=== PATIENT | male | born 2000 | race Caucasian/White ===

== ENCOUNTER 2021-03-07 10:55 | Emergency (ER) | payer OTHER, SELFPAY ==
[2021-03-07 11:12] VITALS: BP 136/86; PULSE 78; RESP 20; TEMP 36.7; O2SAT 99
[2021-03-07 11:41] LABS: Alanine Aminotransferase 19 U/L (4-50); Albumin Level 4.6 g/dL (3.5-5.1); Alkaline Phosphatase 76 U/L (38-126); Anion Gap 7 mmol/L (8-16); Aspartate Amino Transferase 31 U/L (17-59); Bilirubin,Total 1.3 mg/dL (0.2-1.3); Blood Urea Nitrogen 15 mg/dL (9-20); Calcium 9.6 mg/dL (8.4-10.2); Carbon Dioxide 30 mmol/L (22-30); Chloride 105 mmol/L (98-107); Estimated CRCL calculation 109 ml/min; Estimated Glomerular Filt Rate > 60; Glucose 94 mg/dL (75-110); Lipase 53 U/L (23-300); Potassium 4.1 mmol/L (3.4-5.0); Sodium 142 mmol/L (137-145)
[2021-03-07 11:52] LABS: Add Urine Microscopic? YES; Appearance Urine Clear (Clear); Bacteria Urine Trace /hpf; Bilirubin Urine Negative (Negative); Blood Urine Negative (Negative); Color Urine Yellow (Yellow); Glucose Urine UA Negative (Negative); Ketones Urine Negative (Negative); Leukocyte Esterase Ur Negative LEU/UL (Negative); Mucus Urine Few /lpf; Nitrate Urine Negative (Negative); Protein Urine 3+ mg/dL (Negative); RBC Urine 0-2 /hpf (0-2); Specific Grav Ur 1.029 (1.001-1.035); Urobilinogen Urine Negative mg/dL (<2.0); WBC Urine 0-3 /hpf
[2021-03-07 12:39] LABS: Basophils Percent Auto 0.5 % (0.2-1.2); Eosinophils Absolute Auto 0.1 K/mm3 (0-0.3); Eosinophils Percent Auto 0.9 % (0-4.4); Hematocrit 46.1 % (42.0-52.0); Hemoglobin 15.9 g/dL (14.0-18.0); Immature Granulocyte Absolute 0.01 K/mm3 (0.00-0.031); Immature Granulocyte Percent A 0.2 % (0-0.5); Lymphocytes Absolute Auto 1.24 K/mm3 (0.9-3.2); Lymphocytes Percent Auto 19.1 % (18.3-44.2); Mean Corpuscular HGB Conc 34.5 g/dl (32-36); Mean Corpuscular Hemoglobin 30.4 pg (26-34); Mean Corpuscular Volume 88.1 fl (80-100); Monocytes Absolute Auto 0.4 K/mm3 (0.1-0.6); Monocytes Percent Auto 6.3 % (2.6-8.5); Neutrophils Absolute Auto 4.8 K/mm3 (1.3-6.7); Platelet Count Result 242 k/mm3 (150-375); Red Blood Count 5.23 M/mm3 (4.6-6.20); White Blood Count 6.5 K/mm3 (4.5-10.0)
--- NOTE | 2021-03-07 13:36 | PC.NURSE ---
pt reports that pain is better and does not wish to stay any longer. Informed of risk of leaving and encouraged to return if worsening of pain.
== END 2021-03-07 13:36 | disposition left against medical advice (07) ==
PROVIDERS: Emergency Provider Emergency Medicine
DX: R10.84 Generalized abdominal pain (principal)
CPT/HCPCS: 36415; 80053; 81001; 83690; 85025; 99199

== ENCOUNTER 2022-10-24 07:27 | Outpatient (CLI) | payer OTHER, SELFPAY ==
--- NOTE | ~2022-10-24 | MR_ITS ---
EXAMINATION: MR shoulder LT wo con DATE: 10/24/2022 08:09 INDICATION: left rotator cuff strain, posterior left shoulder pain . TECHNIQUE: Magnetic resonance imaging (MRI) of the left shoulder was performed without intravenous co ntrast. Sequences included axial PD-weighted FS FSE, coronal oblique PD-weighted FS FSE and T2-weight ed FS FSE, and sagittal oblique T2-weighted FS FSE and T1-weighted FSE. COMPARISON: None. FINDINGS: Coracoacromial arch: No significant downsloping of the type I acromion. Normal subacromial and subcoracoid spaces. Rotator cuff: Intact. Biceps tendon and glenoid labrum: Long head of biceps tendon and glenoid labrum are intact. Fluid: No significant fluid collections. Bones/cartilage: Normal glenohumeral cartilage. No suspicious focal or diffuse marrow signal. IMPRESSION: 1. Normal left shoulder MR findings. Reviewed, dictated and finalized at location K. [place] DEPARTMENT MANAGER
== END 2022-10-24 07:28 ==
DX: S46.012A Strain of muscle(s) and tendon(s) of the rotator cuff of left shoulder, initial encounter (principal); X58.XXXA Exposure to other specified factors, initial encounter
CPT/HCPCS: 73221

== ENCOUNTER 2025-01-16 16:16 | Emergency (ER) | payer BC, SELFPAY ==
--- NOTE | ~2025-01-16 | CT_ITS ---
CT abdomen pelvis w con Ordering provider: Kate Rocha APRN History: 24 years Male with . abdominal pain . Comparison: October 04, 2019 Technique: CT abdomen and pelvis with IV and without oral contrast. Automated exposure control and it erative reconstruction technique were employed. The dose-length product was 245.00 mGy-cm. 100 mL Omn ipaque 350 was given IV. Findings: VISUALIZED LOWER CHEST: Normal. UPPER ABDOMINAL ORGANS: Liver: Normal. Gallbladder: Distended with no stones. Spleen: Normal. Stomach/duodenum: Normal. Pancreas: Normal. Adrenals: Normal. Kidneys: Tiny cyst in the left kidney lower pole. PELVIC ORGANS: The bladder is normal. BOWEL AND MESENTERY: Colon: No evidence of diverticulitis. Fecal material is loaded in the colon.No definite appendicitis seen. Small Bowel: Normal. No obstruction. Peritoneum/mesentery: No free air or free fluid. No mesenteric lymphadenopathy. RETROPERITONEUM: Normal aorta. No retroperitoneal lymphadenopathy. MUSCULOSKELETAL: Superficial soft tissues: The superficial soft tissues are normal. Bones: Normal spine. IMPRESSION: 1. No evidence of appendicitis, diverticulitis or intestinal obstruction. No renal stones. 2. Constipation. Reviewed, dictated and finalized at location A. IMPRESSION: 1. No evidence of appendicitis, diverticulitis or intestinal obstruction. No r enal stones. 2. Constipation.
[2025-01-16 16:19] VITALS: BP 147/78; PULSE 124; RESP 20; TEMP 38.3; O2SAT 100
--- NOTE | 2025-01-16 16:22 | ECG_ITS ---
Test Date: 2025-01-16 16:43:37 Measurements Intervals [place] Rate: 101 P: 52 LA: 156 QRS: 95 QRSD: 94 T: 66 QT: 319 QTc: 413 Interpretive Statements SINUS TACHYCARDIA BORDERLINE RIGHT AXIS DEVIATION [QRS AXIS > 90] SEPTAL MYOCARDIAL INFARCTION , PROBABLY OLD [40+ ms Q WAVE IN V1/V2] No previous ECG available for comparison Electronically Signed On 01-16-2025 16:51:21 CDT by Roger Sebastian M.D.
--- NOTE | 2025-01-16 16:23 | ED_ITS ---
HPI - Abdominal Pain General Chief Complaint: Abdominal Pain <Kate Rocha APRN - Last Filed: 01/16/25 16:27> Stated Complaint: Abdominal pain, tingling in extremities <Kate Rocha APRN - Last Filed: 01/16/25 16:27> Time Seen by Provider: 01/16/25 16:20 <Kate Rocha APRN - Last Filed: 01/16/25 16:27> Focused HPI: Patient is a 24-year-old male who presents to the ER with complaints abdominal pain that started yesterday. He reports yesterday he had a sore throat and he endorses pain in his mid-abdomen. Today pt reports I feel my throat is closing off and endorses nausea, vomiting, inability to she an oral intake. Patient denies any chest pain, back pain, difficulty swallowing his secretions, neck stiffness. He denies any marijuana use. Patient reports he has no other medical history relevant to this ER visit. GENERAL: Ill-appearing, well-nourished, and in mild distress d/t pain. HEAD: Normocephalic, atraumatic. CHEST: Clear to auscultation. ?No respiratory distress. HEART: Tachycardia.? NEURO: ?Alert and oriented x3. Patient screened in triage and initial orders placed.? ?Additional care and disposition to be based upon?diagnostic testing and treatment. <Kate Rocha APRN - Last Filed: 01/16/25 16:27> History of Present Illness HPI narrative: I agree with the above HPI <Christopher Schmid MD - Last Filed: 01/16/25 22:20> Related Data Allergies/Adverse Reactions: Allergies Allergy/AdvReac Type Severity Reaction Status Date / Time No Known Allergies Allergy Mild Verified 01/16/25 16:17 <Kate Rocha APRN - Last Filed: 01/16/25 16:27> Review of Systems 2 Review of Systems: All systems reviewed & are unremarkable except as noted in HPI and below <Christopher Schmid MD - Last Filed: 01/16/25 22:20> PMFSH Past Medical History Medical History: Medical History (Updated 01/16/25 @ 17:59 by Christopher Schmid MD) Healthy adult <Kate Rocha APRN - Last Filed: 01/16/25 16:27> Surgical History Surgical History: Surgical History (Updated 10/04/19 @ 20:30 by Lorraine Sorto) History of tonsillectomy <Kate Rocha APRN - Last Filed: 01/16/25 16:27> Social History Social History: Social History (Updated 10/04/19 @ 20:30 by Lorraine Sorto) Smoking status: Unknown if ever smoked Gender identity (if verbalized by the patient): Male <Kate Rocha APRN - Last Filed: 01/16/25 16:27> Exam 2 Narrative: APPEARANCE: Ill-appearing HEAD: normocephalic, atraumatic. EYES: PERRLA/EOMI, conjunctivae clear. NOSE: Normal no drainage EARS:TMS clear with good light reflex. THROAT: Pharynx clear, no exudate. NECK: Supple. No adenopathy, no masses. RESPIRATORY: Airway patent, respirations nonlabored. Clear to auscultation bilaterally, no rales, rhonchi, wheezing. CARDIOVASCULAR: Regular rate and rhythm without murmurs rubs or gallops. ABDOMINAL: Soft, nontender, nondistended, normal bowel sounds MUSCULOSKELETAL: Moves all extremities. Strength/ROM intact, No edema, No calf tenderness. NEURO: Alert. Cranial nerves II through XII intact. Good gait. Good coordination SKIN: Warm, dry. Normal Color <Christopher Schmid MD - Last Filed: 01/16/25 22:20> Course Vital Signs Vital signs: Vital Signs Temperature 100.9 F H 01/16/25 16:19 Pulse Rate 124 H 01/16/25 16:19 Respiratory Rate 20 01/16/25 16:19 Blood Pressure 147/78 H 01/16/25 16:19 Pulse Oximetry 100 01/16/25 16:19 Oxygen Delivery Room Air 01/16/25 16:19 Temperature 97.9 F 01/16/25 18:04 Pulse Rate 103 H 01/16/25 18:04 Respiratory Rate 18 01/16/25 18:04 Blood Pressure 135/75 01/16/25 18:04 Pulse Oximetry 100 01/16/25 18:04 Oxygen Delivery Room Air 01/16/25 16:35 <Kate Rocha APRN - Last Filed: 01/16/25 16:27> Vital Signs Temperature 100.9 F H 01/16/25 16:19 Pulse Rate 124 H 01/16/25 16:19 Respiratory Rate 20 01/16/25 16:19 Blood Pressure 147/78 H 01/16/25 16:19 Pulse Oximetry 100 01/16/25 16:19 Oxygen Delivery Room Air 01/16/25 16:19 Temperature 97.9 F 01/16/25 18:04 Pulse Rate 103 H 01/16/25 18:04 Respiratory Rate 18 01/16/25 18:04 Blood Pressure 135/75 01/16/25 18:04 Pulse Oximetry 100 01/16/25 18:04 Oxygen Delivery Room Air 01/16/25 16:35 <Christopher Schmid MD - Last Filed: 01/16/25 22:20> MDM - Abdominal Pain MDM Narrative Medical decision making narrative: 24-year-old male presents emergency department for evaluation for sore throat body aches fatigue and abdominal pain. Patient is mildly febrile and does have a leukocytosis of 18.8, hemoglobin is 15.4, patient's platelets are normal. Patient has an INR of 1.1, no significant abnormalities on his CMP patient was positive for strep, CT abdomen pelvis shows no acute intra-abdominal pathology. Patient was treated with a dose of dexamethasone, p.o. Augmentin, 1 g of Tylenol and a L of IV fluids. Did feel improved in the emergency department. Patient being discharged home with Augmentin and instructions for Tylenol ibuprofen and soft diet. Patient was comfortable the plan for discharge <Christopher Schmid MD - Last Filed: 01/16/25 22:20> Differential Diagnosis Differential diagnosis: Likely abdominal pain, acute appendicitis, constipation, diverticulitis, pancreatitis and small bowel obstruction <Christopher Schmid MD - Last Filed: 01/16/25 22:20> Lab Data Attestation: I reviewed the patient's lab results. <Christopher Schmid MD - Last Filed: 01/16/25 22:20> Result diagrams: 01/16/25 16:33 01/16/25 16:33 <Kate Rocha APRN - Last Filed: 01/16/25 16:27> Labs: Lab Results 01/16/25 01/16/25 Range/Units 16:33 16:34 WBC 18.8 H (4.5-10.0) K/mm3 RBC 5.01 (4.6-6.20) M/mm3 Hgb 15.4 (14.0-18.0) g/dL Hct 43.3 (42.0-52.0) % MCV 86.4 (80-100) fl MCH 30.7 (26-34) pg MCHC 35.6 (32-36) g/dl RDW 12.3 (11.5-14.5) % Plt Count 209 (150-375) k/mm3 MPV 9.6 (7.4-10.4) fl Immature Gran % (Auto) 0.4 (0-0.5) % Neut % (Auto) 91.5 H (45.5-73.1) % Lymph % (Auto) 2.7 L (18.3-44.2) % [place] % (Auto) 5.1 (2.6-8.5) % Eos % (Auto) 0.1 (0-4.4) % Baso % (Auto) 0.2 (0.2-1.2) % Lymph # (Auto) 0.51 L (0.9-3.2) K/mm3 [place] # (Auto) 1.0 H (0.1-0.6) K/mm3 Eos # (Auto) 0.0 (0-0.3) K/mm3 Baso # (Auto) 0.0 (0.0-0.1) K/mm3 Abs Immat Gran (auto) 0.08 H (0.00-0.031) K/mm3 Absolute Neuts (auto) 17.2 H (1.3-6.7) K/mm3 Absolute Nucleated RBC 0.000 (0.0-0.012) K/mm3 Nucleated RBC % 0.0 (0.0-0.2) % PT 14.9 H (11.1-14.7) Seconds INR 1.1 APTT 28.8 (22.3-36.8) Seconds Sodium 139 (137-145) mmol/L Potassium 3.6 (3.4-5.0) mmol/L Chloride 104 (98-107) mmol/L Carbon Dioxide 19 L (22-30) mmol/L Anion Gap 16 H (4-12) mmol/L BUN 12 (9-20) mg/dL Creatinine 0.82 (0.7-1.3) mg/dL Estim Creat Clear Calc 104 ml/min Estimated GFR > 60 (59 - ) Glucose 103 (65-110) mg/dL Lactic Acid 1.7 (0.7-2.0) mmol/L Calcium 9.7 (8.4-10.2) mg/dL Total Bilirubin 2.0 H (0.2-1.3) mg/dL AST 28 (17-59) U/L ALT 26 (6-50) U/L Alkaline Phosphatase 84 (38-126) U/L Troponin I < 0.012 (0.000-0.034) ng/mL Total Protein 8.0 (6.3-8.2) g/dL Albumin 4.7 (3.5-5.1) g/dL Lipase 155 (23-300) U/L Group A Strep (PCR) Detected A (Negative) <Kate Rocha, ADMISSIONS SUPERVISOR - Last Filed: 01/16/25 16:27> Lab Results 01/16/25 01/16/25 Range/Units 16:33 16:34 WBC 18.8 H (4.5-10.0) K/mm3 RBC 5.01 (4.6-6.20) M/mm3 Hgb 15.4 (14.0-18.0) g/dL Hct 43.3 (42.0-52.0) % MCV 86.4 (80-100) fl MCH 30.7 (26-34) pg MCHC 35.6 (32-36) g/dl RDW 12.3 (11.5-14.5) % Plt Count 209 (150-375) k/mm3 MPV 9.6 (7.4-10.4) fl Immature Gran % (Auto) 0.4 (0-0.5) % Neut % (Auto) 91.5 H (45.5-73.1) % Lymph % (Auto) 2.7 L (18.3-44.2) % [place] % (Auto) 5.1 (2.6-8.5) % Eos % (Auto) 0.1 (0-4.4) % Baso % (Auto) 0.2 (0.2-1.2) % Lymph # (Auto) 0.51 L (0.9-3.2) K/mm3 [place] # (Auto) 1.0 H (0.1-0.6) K/mm3 Eos # (Auto) 0.0 (0-0.3) K/mm3 Baso # (Auto) 0.0 (0.0-0.1) K/mm3 Abs Immat Gran (auto) 0.08 H (0.00-0.031) K/mm3 Absolute Neuts (auto) 17.2 H (1.3-6.7) K/mm3 Absolute Nucleated RBC 0.000 (0.0-0.012) K/mm3 Nucleated RBC % 0.0 (0.0-0.2) % PT 14.9 H (11.1-14.7) Seconds INR 1.1 APTT 28.8 (22.3-36.8) Seconds Sodium 139 (137-145) mmol/L Potassium 3.6 (3.4-5.0) mmol/L Chloride 104 (98-107) mmol/L Carbon Dioxide 19 L (22-30) mmol/L Anion Gap 16 H (4-12) mmol/L BUN 12 (9-20) mg/dL Creatinine 0.82 (0.7-1.3) mg/dL Estim Creat Clear Calc 104 ml/min Estimated GFR > 60 (59 - ) Glucose 103 (65-110) mg/dL Lactic Acid 1.7 (0.7-2.0) mmol/L Calcium 9.7 (8.4-10.2) mg/dL Total Bilirubin 2.0 H (0.2-1.3) mg/dL AST 28 (17-59) U/L ALT 26 (6-50) U/L Alkaline Phosphatase 84 (38-126) U/L Troponin I < 0.012 (0.000-0.034) ng/mL Total Protein 8.0 (6.3-8.2) g/dL Albumin 4.7 (3.5-5.1) g/dL Lipase 155 (23-300) U/L Group A Strep (PCR) Detected A (Negative) <Christopher Schmid MD - Last Filed: 01/16/25 22:20> Imaging Data Radiologist's impression: ITS Impressions Abdomen/Pelvis CT 01/16/25 17:15 IMPRESSION: 1. No evidence of appendicitis, diverticulitis or intestinal obstruction. No renal stones. 2. Constipation. <Kate Rocha APRN - Last Filed: 01/16/25 16:27> ITS Impressions Abdomen/Pelvis CT 01/16/25 17:15 IMPRESSION: 1. No evidence of appendicitis, diverticulitis or intestinal obstruction. No renal stones. 2. Constipation. <Christopher Schmid MD - Last Filed: 01/16/25 22:20> Discharge Plan Discharge Clinical Impression: Strep throat <Kate Rocha APRN - Last Filed: 01/16/25 16:27> Patient Disposition: Home, Self-Care <Kate Rocha APRN - Last Filed: 01/16/25 16:27> Condition: Stable <Kate Rocha APRN - Last Filed: 01/16/25 16:27> Instructions: Antibiotic Form, Strep Throat (ED) <Kate Rocha APRN - Last Filed: 01/16/25 16:27> Additional Instructions: Tylenol and ibuprofen for fever, body aches and pain. Antibiotic as directed until completed. Follow a soft diet for comfort. Have close follow-up with your primary care physician. <Kate Rocha APRN - Last Filed: 01/16/25 16:27> Patient Language: Hong Konger <Kate Rocha APRN - Last Filed: 01/16/25 16:27> Prescriptions: New amoxicillin-pot clavulanate 875-125 mg tablet 1 tablet PO Q12H 7 Days Qty: 14 0RF <Kate Rocha APRN - Last Filed: 01/16/25 16:27> Follow-up/Referrals: UNKNOWN,DOCTOR [Primary Care Provider] - <Kate Rocha APRN - Last Filed: 01/16/25 16:27>
[2025-01-16 16:28] VITALS: BP 143/88; PULSE 103; RESP 20; TEMP 36.6; O2SAT 100
--- NOTE | 2025-01-16 16:31 | PC.NURSE ---
Pt presents to ED c/o 04/03 abdominal pain, non radiating, onset 2 days ago. pt reports x1 episode non-bloody emesis, numbness and tingling lower extremely bilateral. Pt slightly tachy upon roomed with HR 102, HTN and febrile at home.
[2025-01-16 16:35] VITALS: PULSE 100; RESP 22; TEMP 38.1; O2SAT 100
[2025-01-16] MEDS: FAMOTIDINE 20 MG/2 ML VIAL IV PUSH (16:39)
[2025-01-16] MEDS: SODIUM CHLORIDE 0.9% IV 1,000 ML 999 ML IV CONT (16:39)
[2025-01-16] MEDS: ONDANSETRON INJ 4 MG/2 ML VIAL IV PUSH (16:39)
[2025-01-16] MEDS: PANTOPRAZOLE SODIUM IV 40 MG VIAL IV PUSH (16:39)
[2025-01-16 16:40] LABS: Basophils Percent Auto 0.2 % (0.2-1.2); Eosinophils Percent Auto 0.1 % (0-4.4); Hematocrit 43.3 % (42.0-52.0); Hemoglobin 15.4 g/dL (14.0-18.0); Immature Granulocyte Absolute 0.08 K/mm3 (0.00-0.031); Immature Granulocyte Percent A 0.4 % (0-0.5); Lymphocytes Absolute Auto 0.51 K/mm3 (0.9-3.2); Lymphocytes Percent Auto 2.7 % (18.3-44.2); Mean Corpuscular HGB Conc 35.6 g/dl (32-36); Mean Corpuscular Hemoglobin 30.7 pg (26-34); Mean Corpuscular Volume 86.4 fl (80-100); Mean Platelet Volume 9.6 fl (7.4-10.4); Monocytes Percent Auto 5.1 % (2.6-8.5); Neutrophils Absolute Auto 17.2 K/mm3 (1.3-6.7); Neutrophils Percent Auto 91.5 % (45.5-73.1); Platelet Count Result 209 k/mm3 (150-375); Red Blood Count 5.01 M/mm3 (4.6-6.20); Red Cell Distribution Width 12.3 % (11.5-14.5); White Blood Count 18.8 K/mm3 (4.5-10.0)
[2025-01-16 16:49] LABS: Lactic Acid Reflex 1.7 mmol/L (0.7-2.0)
[2025-01-16 16:50] LABS: Alanine Aminotransferase 26 U/L (6-50); Albumin Level 4.7 g/dL (3.5-5.1); Alkaline Phosphatase 84 U/L (38-126); Anion Gap 16 mmol/L (4-12); Aspartate Amino Transferase 28 U/L (17-59); Blood Urea Nitrogen 12 mg/dL (9-20); Calcium 9.7 mg/dL (8.4-10.2); Carbon Dioxide 19 mmol/L (22-30); Chloride 104 mmol/L (98-107); Estimated CRCL calculation 104 ml/min; Estimated Glomerular Filt Rate > 60; Glucose 103 mg/dL (65-110); INR 1.1; Lipase 155 U/L (23-300); Partial Thromboplastin Time 28.8 Seconds (22.3-36.8); Potassium 3.6 mmol/L (3.4-5.0); Prothrombin Time 14.9 Seconds (11.1-14.7); Sodium 139 mmol/L (137-145)
[2025-01-16 17:02] LABS: Troponin I < 0.012 ng/mL (0.000-0.034)
[2025-01-16 17:02] LABS: Strep Group A RT-PCR DETECTED (Negative)
[2025-01-16 17:17] VITALS: BP 143/88; PULSE 112; RESP 18; TEMP 36.6; O2SAT 100
[2025-01-16] MEDS: ACETAMINOPHEN 500 MG TABLET 1000 MG PO (17:33)
[2025-01-16] MEDS: dexAMETHasone SOD PHOS INJ 10 MG/ML 1 ML VIAL IV PUSH (17:33)
[2025-01-16] MEDS: AMOXICILLIN/CLAVULANATE K 875-125 MG TAB 1 TABLET PO (17:33)
[2025-01-16 17:36] VITALS: BP 148/71; PULSE 105; RESP 18; TEMP 36.6; O2SAT 100
[2025-01-16 18:04] VITALS: BP 135/75; PULSE 103; RESP 18; TEMP 36.6; O2SAT 100
--- OUTSIDE RECORDS SUMMARY | 2025-01-16 18:32 | XMS_ITS | Clinical Summary ---
Author Organization [facility] Address [address] [place] [address] Care Team Providers Care Business Systems Consultant Name Role Phone Rosio Ramirez MD Primary Care Provider [phone] Source Comments [facility] [employer],non-owned Affiliates and Associated Physician Practices is amultiple site organization consisting of ambulatory clinics and hospital sitesin [place], [place], [place] and [place]. This disclosure is being madepursuant to the Care Everywhere program and may not contain all information available regarding this patient. Last updated 18.[facility] Allergies No known active allergies Medications * Be aware that medications may not be up to date on this document. Alwaysverify current medications with the patient. Medication Sig Dispensed Refills Start Date End Date Status IBUPROFEN PO Take by mouth. Active ibuprofen (MOTRIN) 400 MG tablet Take 1 Tab by mouth every 6 hours as needed for Pain. 40 Tab 1 09/20/2013 Active Social History Tobacco Use Types Packs/Day Years Used Date Smoking Tobacco: Never Assessed Sex and Gender Information Value Date Recorded Sex Assigned at Not on file Gender Identity Not on file Sexual Orientation Not on file Last Filed Vital Signs Vital Sign Reading Time Taken Comments Blood Pressure 137/92 09/20/2013 8:48 PM EGG GATHERER Pulse 68 09/20/2013 8:48 PM EGG GATHERER Temperature 37.7 C (99.8 F) 09/20/2013 8:48 PM EGG GATHERER Respiratory Rate 20 09/20/2013 8:48 PM EGG GATHERER Oxygen Saturation - - Inhaled Oxygen Concentration - - Weight 52.9 kg (116 lb 10 oz) 09/20/2013 8:48 PM EGG GATHERER Height - - Body Mass Index - - Plan of Treatment Health Maintenance Due Date Last Done Comments HIV SCREENING 2013 HPV VACCINE (1 - Male 3-dose series) 2013 HEPATITIS C SCREENING 05/03/2016 DTAP/TDAP/TD VACCINES (1 - Tdap) 2017 HEPATITIS B VACCINE (1 of 3 - 19+ 3-dose series) 2017 COVID-19 VACCINE (1 - 2023-2 5 season) 2024 INFLUENZA VACCINE (#1) 2024 DEPRESSION SCREENING 10/25/2024 ZOSTER VACCINE (1 of 2) 2048 HIB VACCINE Aged Out No longer eligi ble based on patient's age to complete this topic MENINGOCOCCAL (Group B) VACC INE SHARED DECISION-MAKING Aged Out No longer eligibl e based on patient's age to complete this topic MENINGOCOCCAL GROUPS A/C/Y/W VACCINE Aged Out No longer eligible b ased on patient's age to complete this topic PNEUMOCOCCAL VACCINE Aged Out No long er eligible based on patient's age to complete this topic Care Teams Business Systems Consultant Relationship Specialty Start Date End Date Rosio Ramirez MD [id number] [place] [address] PCP - General 12/11/09
== END 2025-01-16 18:08 | disposition home or self-care (01) ==
PROVIDERS: Registered Nurse; Emergency Provider Emergency Medicine
DX: J02.0 Streptococcal pharyngitis (principal)
CPT/HCPCS: 36415; 74177; 80053; 83605; 83690; 84484; 85025; 85610; 85730; 87651; 93005; 96361; 96374; 96375; 99284; A9270; J1100; J2405; J2470; J7030; Q9967